=== PATIENT | female | born 1940 | race Hispanic/Latino ===

== ENCOUNTER 2018-03-02 08:02 | Outpatient (CLI) | payer MEDICARE, OTHER ==
--- NOTE | 2018-03-02 09:37 | ULT ---
BILATERAL RENAL ULTRASOUND: Date: 03/02/18 HISTORY: Chronic renal disease. FINDINGS: The right kidney measures 10.1 cm in length and the left kidney measures 10.7 cm in length. There is minimal cortical thinning on the right. No focal mass or hydronephrosis is seen on either side. The p re-void bladder volume is 42 mL and post-void residual is 14 mL. There is increased echogenicity of t he renal cortex. IMPRESSION: Findings are consistent with medical renal disease. POS: [facility]
== END 2018-03-02 08:03 | disposition home or self-care (01) ==
LOC: NAV ULT 08:02
PROVIDERS: ATTEND Internal Medicine Nephrology
DX: N18.3 Chronic kidney disease, stage 3 (moderate) (principal)
CPT/HCPCS: 76770